=== PATIENT | female | born 1980 | race Caucasian/White ===

== ENCOUNTER 2017-12-01 07:21 | Emergency (ER) | payer MEDICAID ==
[~2017-12-01] VITALS: Ht 154.9 cm; Wt 59.0 kg
[2017-12-01] MEDS ORDERED: NAPROSYN500 MG PO (09:01)
== END 2017-12-01 09:42 | disposition home or self-care (01) ==
LOC: ED 07:21
DX: S29.012A Strain of muscle and tendon of back wall of thorax, initial encounter (principal); X58.XXXA Exposure to other specified factors, initial encounter; F17.200 Nicotine dependence, unspecified, uncomplicated
CPT/HCPCS: 80053; 81001; 83690; 84703; 85025; 96374; 99284; J1885

== ENCOUNTER 2022-04-01 09:58 | Emergency (ER) | payer OTHER ==
[~2022-04-01] VITALS: Ht 154.9 cm; Wt 66.1 kg
[~2022-04-01 09:58] MED LIST: NAPROSYN500 MG PO
--- OUTSIDE RECORDS SUMMARY | 2022-04-01 10:06 | XMS ---
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 Kim has no Care Guidelines for this patient. Care History Medical/Surgical 12/02/2017 [facility] - CHW CALLED PATIENT AND LEFT A VOICEMAIL. - PATIENT DOES NOT HAVE INSURANCE, AND HAS NOT APPLIED FOR MEDICAID BENEFITS. - NO PCP LETTER SENT TO PATIENT. - IF PATIENT IS SEEN IN THE ED PLEASE CONTACT [facility] TO APPLY FOR MEDICAID BENEFITS EXT [phone]. - PLEASE PROVIDE CHW CONTACT INFORMATION TO PATIENT IF PATIENT IS SEEN IN THE ED AFTER HOURS. - JAMEL- CONTACT NUMBER [phone]. E.D. VISIT COUNT (12 MO.) 1 [facility] TOTAL 1 NOTE: Visits indicate total known visits. ED/UCC VISIT TRACKING (12 MO.) 04/01/2022 09:[address] [facility] [place] TYPE: Emergency COMPLAINT: - SKIN PROBLEM, PAINFUL INPATIENT VISIT TRACKING (12 MO.) No inpatient visits to display in this time frame [id number]
== END 2022-04-01 13:06 | disposition home or self-care (01) ==
LOC: ED 09:58
DX: R10.31 Right lower quadrant pain (principal); F17.200 Nicotine dependence, unspecified, uncomplicated
CPT/HCPCS: 36415; 74177; 80053; 81001; 83690; 84703; 85025; 99284-25; Q9967

== ENCOUNTER 2022-06-05 08:31 | Emergency (ER) | payer OTHER ==
[~2022-06-05] VITALS: Ht 154.9 cm; Wt 61.5 kg
[~2022-06-05 08:31] MED LIST changes: +ACID CONTROLLER20 MG PO; +ZESTRIL2.5 MG PO
--- OUTSIDE RECORDS SUMMARY | 2022-06-05 08:34 | XMS ---
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 Care History Medical/Surgical 12/02/2017 [facility] - CHW CALLED PATIENT AND LEFT A VOICEMAIL. - PATIENT DOES NOT HAVE INSURANCE, AND HAS NOT APPLIED FOR MEDICAID BENEFITS. - NO PCP LETTER SENT TO PATIENT. - IF PATIENT IS SEEN IN THE ED PLEASE CONTACT [facility] TO APPLY FOR MEDICAID BENEFITS EXT [phone]. - PLEASE PROVIDE CHW CONTACT INFORMATION TO PATIENT IF PATIENT IS SEEN IN THE ED AFTER HOURS. - JAMEL- CONTACT NUMBER [phone]. E.D. VISIT COUNT (12 MO.) 2 [facility] TOTAL 2 NOTE: Visits indicate total known visits. ED/UCC VISIT TRACKING (12 MO.) 06/05/2022 08:[address] [facility] [place] TYPE: Emergency COMPLAINT: - ABD PAIN, POSS CONSTIPATION 04/01/2022 09:59 [facility] [place] TYPE: Emergency COMPLAINT: - SKIN PROBLEM, PAINFUL DIAGNOSES: - Nicotine dependence, unspecified, uncomplicated - Right lower quadrant pain INPATIENT VISIT TRACKING (12 MO.) No inpatient visits to display in this time frame [id number]
[2022-06-05] MEDS ORDERED: CONSTULOSE10 GM/15 M PO (10:01)
== END 2022-06-05 10:09 | disposition home or self-care (01) ==
LOC: ED 08:31
DX: R10.9 Unspecified abdominal pain (principal); K50.90 Crohn's disease, unspecified, without complications; F17.200 Nicotine dependence, unspecified, uncomplicated; Z79.899 Other long term (current) drug therapy
CPT/HCPCS: 36415; 74176; 80053; 81003; 83690; 84703; 85025; 96374; 99284-25; 99406; J1885; J7030

== ENCOUNTER 2022-06-06 08:35 | Day surgery (SDC) | payer OTHER ==
[~2022-06-06] VITALS: Ht 154.9 cm; Wt 63.0 kg
[~2022-06-06 08:35] MED LIST changes: +CONSTULOSE10 GM/15 M PO
--- NOTE | 2022-06-06 14:00 | NUR ---
06/06/22 1400 Jaylyn Sofia 1352-PATIENT ARRIVED TO PACU ON 6L MASK PATIENT SHAKING ORAL AIRWAY IN PLACE JULES SQUEEGEE OPERATOR REMOVED ORAL AIRWAY. PATIENT ORIENTED TO PACU. PATIENT TRYING TO LAY ON RIGHT SIDE O2 MASK REMOVED AND PLACED ON RA. PILLOW PLACED BENEATH KNEES. RIGHT GROIN INCISION CDI. FLORES PAWS AND WARM BLANKETS APPLIED. 9447-PATIENT SLEEPING 100% RR EVEN IVF INFUSING SR HR 70-80'S
--- NOTE | 2022-06-06 14:27 | NUR ---
LE 1425: PT IS BACK TO DS FROM PACU. SHE IS SLIGHTLY DISORIENTED. SHE DENIES PAIN IN THE SURGICAL AREA, BUT DOES REPORT A SORE THROAT. SHE IS GIVEN ICE WATER AND TOLERATES SIPS. CALL LIGHT WITHIN REACH. BF IS AT THE BEDSIDE. NO ADDITIONAL NEEDS CONCERNS AT THIS TIME DC CRITERIA IS REVIEWED WITH PT AND BF.
--- NOTE | 2022-06-06 14:45 | NUR ---
ANNIKA 1430: PT IS HELPED UP OOB TO USE THE BATHROOM. SHE AMBULATES HERSELF TO AND FROM THE BATHROOM. SHE VOIDS 300MLS OF PALE YELLOW URINE. SHE REQUESTS APPLE SAUCE.
--- NOTE | 2022-06-06 15:29 | NUR ---
PT IS TOLERATING WATER AND APPLE SAUCE. SHE HAS MET ALL DC CRITERIA. SHE INDICATES THAT SHE WOULD LIKE TO GO HOME AT THIS TIME. SHE IS GIVEN VERBAL INSTRUCTIONS ON HOW TO BREST DRESS HERSELF AND TO OPEN HER CURTAIN WHEN READY.
--- NOTE | 2022-06-06 15:39 | NUR ---
ANNIKA 1538: PT AND BF ARE GIVEN VERBAL AND WRITTEN DC INSTRUCTIONS. THEY BOTH VERBALIZE UNDERSTANDING. QUESTIONS ARE ASKED ANSWERED. PT IS TAKEN TO PERSONAL VEHICLE VIA WC, WHERE SHE TRANSFERS HERSELF WITHOUT ISSUES.
--- NOTE | 2022-06-06 16:29 | OR ---
[facility] [address], [place] [address] Signed DATE OF OPERATION: 06/06/2022 SURGEON: Katja Del Angel MD PREOPERATIVE DIAGNOSIS: Incarcerated right inguinal hernia. POSTOPERATIVE DIAGNOSIS: Incarcerated right femoral hernia. PROCEDURE: Colton's ligament preperitoneal right femoral herniorrhaphy with mesh. ESTIMATED BLOOD LOSS: None. 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 The restaurant is extremely busy and she does a lot of heavy work. In the last two or three months, she has noticed pain and swelling in the right groin area. She had been to the emergency room for evaluation. A CT scan showed a fluid-filled right inguinal hernia. The swelling and pain has persisted. She had been to her primary care provider. She was asked to see me with respect to the above. In the office, one could clearly see and feel this hernia. It is just low enough it is most likely a femoral hernia. I had given Mahendra a booklet on hernias. We looked at it carefully page by page. Our approach to all inguinal hernias is the same with standard oblique incision in the right groin and we generally will use mesh to repair these hernias particularly for someone so young and so involved in heavy work. I reviewed with her the expected intraop and postop course. Of course, there is risk to hernia surgery including, but not limited to bleeding, infection, scarring, change in contour of the skin, damage to the nerves, recurrent hernias and chronic pain. She had expressed understanding and wished to proceed. DESCRIPTION OF PROCEDURE: I met with Mahendra and her boyfriend in our preop area. She agreed with respect to the right inguinal hernia. We marked that appropriately. After this, she was taken in the operating room and placed in the supine position under general endotracheal tube anesthesia. She was given preoperative antibiotics along with subcutaneous heparin. SCDs were utilized. She was then prepped and draped in the usual sterile fashion. We can see she has had a previous Pfannenstiel incision for the . We did not Electronically Signed By: KATJA DEL ANGEL MD 06/06/22 1629 PATIENT NAME: MAHENDRA CARRASCO OPERATIVE REPORT DATE OF : 84 REPORT #: [id number] PHYSICIAN: KATJA DEL ANGEL MD PCP: LACY RED MD REPORT IS CONFIDENTIAL AND NOT TO BE RELEASED WITHOUT AUTHORIZATION [facility] [address], [place] [address] Signed specifically palpate the hernia in the supine position. We went ahead and made a standard oblique incision over the right groin and carried it down through the tissue bluntly and with the cautery. We had opened the external oblique fascia and looked into the inguinal canal. We moved the ilioinguinal ligament and iliohypogastric nerve medially. We elevated the round ligament just past the pubic tubercle. It was divided with cautery and then we had followed it back to the deep ring and we suture ligated the round ligament with our 2-0 PDS suture. We then amputated the round ligament and passed it off the field. We could feel some bulging just below the inguinal ligament. We went ahead and opened the floor of inguinal canal and we inspected the Colton's ligament and the femoral canal and sure enough she had a femoral hernia coming through. That tissue was the size of a small egg. Consequently, we could not reduce it through that small femoral canal. We worked the herniated fat loose below the inguinal ligament. We had amputated the hernia sac and passed it off the field. We closed the hernia sac with a running 2-0 PDS suture. We then reduced the hernia sac through the femoral canal back into the abdominal cavity. After this, we used Prolene mesh cut to fit her groin and we brought it down just past Colton's ligament and held it in place with interrupted Prolene sutures. We then made a transition step stitch up past the femoral vein and just underneath the inguinal ligament. We then folded the mesh up underneath the muscle and we held it medially with several interrupted 2-0 Prolene sutures to the shelving edge of the conjoined tendon. We did this circumferentially and we the round ligament underneath so that the mesh was over top of the round ligament as well. We then brought our inguinal floor back together with a running 0 PDS suture starting at the pubic tubercle all the way up to include the deep ring. We then used an interrupted 0 Prolene suture to close the fascial defect below the inguinal ligament in the standard Bassini fashion. After this, local anesthetic was copiously injected in the operative field. The iliohypogastric and ilioinguinal nerves were returned to their positions. We closed the external oblique fascia over the repair with a running 2-0 PDS suture. Of course, the very distal portion was left open as the external ring. We then closed Domenica's fascia with a running 3-0 Monocryl suture. We irrigated and suctioned out the wound before closure. We reapproximated the dermis with interrupted 3-0 subcuticular Monocryl sutures. Skin edges were reapproximated with a running 5-0 fast absorbing plain gut suture. Dry gauze and tape were then applied. Mahendra was then awakened from anesthesia, extubated in the OR, and taken to the recovery room in stable condition. Katja Del Angel MD ALB/MODL /[id number] Electronically Signed By: KATJA DEL ANGEL MD 06/06/22 1629 PATIENT NAME: MAHENDRA CARRASCO OPERATIVE REPORT DATE OF : 84 REPORT #: [id number] PHYSICIAN: KATJA DEL ANGEL MD PCP: LACY RED MD REPORT IS CONFIDENTIAL AND NOT TO BE RELEASED WITHOUT AUTHORIZATION [address] [address] Signed cc: MD Katja Reid MD Copies: KATJA DEL ANGEL MD ~ Electronically Signed By: KATJA DEL ANGEL MD 06/06/22 1629 PATIENT NAME: MAHENDRA CARRASCO OPERATIVE REPORT DATE OF : 84 REPORT #: [id number] PHYSICIAN: KATJA DEL ANGEL MD PCP: LACY RED MD REPORT IS CONFIDENTIAL AND NOT TO BE RELEASED WITHOUT AUTHORIZATION
== END 2022-06-06 15:40 | disposition home or self-care (01) ==
LOC: DS 08:35
PROVIDERS: ATTEND Colon & Rectal Surgery
PROC: 0YU70JZ Supplement Right Femoral Region with Synthetic Substitute, Open Approach (ICD-10-PCS; principal; 2022-06-06 10:30)
DX: K41.30 Unilateral femoral hernia, with obstruction, without gangrene, not specified as recurrent (principal)
CPT/HCPCS: 84703; J0131; J0330; J0690; J1100; J1644; J1885; J2405; J2704; J7121

== ENCOUNTER 2022-07-29 08:29 | Emergency (ER) | payer OTHER ==
[~2022-07-29] VITALS: Ht 154.9 cm; Wt 58.8 kg
--- OUTSIDE RECORDS SUMMARY | 2022-07-29 08:32 | XMS ---
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 Care History Medical/Surgical 12/02/2017 [facility] - CHW CALLED PATIENT AND LEFT A VOICEMAIL. - PATIENT DOES NOT HAVE INSURANCE, AND HAS NOT APPLIED FOR MEDICAID BENEFITS. - NO PCP LETTER SENT TO PATIENT. - IF PATIENT IS SEEN IN THE ED PLEASE CONTACT [facility] TO APPLY FOR MEDICAID BENEFITS EXT [phone]. - PLEASE PROVIDE [facility]W CONTACT INFORMATION TO PATIENT IF PATIENT IS SEEN IN THE ED AFTER HOURS. - JAMEL- CONTACT NUMBER [phone]. E.D. VISIT COUNT (12 MO.) 3 [facility] TOTAL 3 NOTE: Visits indicate total known visits. ED/UCC VISIT TRACKING (12 MO.) 07/29/2022 08:30 [facility] [place] [facility]: Emergency COMPLAINT: - ABD PAIN, DIZZINESS, V/D, INCISION PAIN 06/05/2022 08:[address] 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 [place] TYPE: Emergency COMPLAINT: - SKIN PROBLEM, PAINFUL DIAGNOSES: - Nicotine dependence, unspecified, uncomplicated - Right lower quadrant pain INPATIENT VISIT TRACKING (12 MO.) No inpatient visits to display in this time frame [email or web address]
[2022-07-29] MEDS ORDERED: ONDANSETRON ODT4 MG PO (11:11)
[2022-07-29 11:36] VITALS: BP 106/73
== END 2022-07-29 11:37 | disposition home or self-care (01) ==
LOC: ED 08:29
DX: R10.31 Right lower quadrant pain (principal); R11.2 Nausea with vomiting, unspecified; R19.7 Diarrhea, unspecified; F17.200 Nicotine dependence, unspecified, uncomplicated; Z79.899 Other long term (current) drug therapy
CPT/HCPCS: 36415; 74177; 80053; 81003; 83690; 84703; 85025; 99284-25; Q9967

== ENCOUNTER 2024-10-12 10:04 | Emergency (ER) | payer OTHER ==
[~2024-10-12] VITALS: Ht 154.9 cm; Wt 66.3 kg
[~2024-10-12 10:04] MED LIST changes: +BACTRIM DS TAB1 EACH PO; +ONDANSETRON ODT4 MG PO; +SULFAMETHOXAZO1 EAC1 PO
[2024-10-12 10:56] LABS: BASOPHILS 0.8 % (0.1-1.2); EOSINOPHILS 3.1 % (0.7-5.8); LYMPHOCYTES 18.4 % (19.3-51.7); MCH 29.5 PG (25.6-32.2); MCHC 33.7 g/dL (32.2-35.5); MCV 87.7 fL (79.4-94.8); MONOCYTES 5.9 % (4.7-12.5); NEUTROPHILS 71.6 % (34.0-71.1); RBC 4.57 M/uL (3.93-5.22)
[2024-10-12] MEDS ORDERED: SODIUM CHLORIDE 0.9% 1,000 ML IV PRN (11:00)
[2024-10-12 11:16] LABS: ALT (SGPT) 18.0 U/L (14-59); AST (SGOT) 12.0 U/L (15-37); GLOMERULAR FILTRATION RATE,EST 104.0 mL/min (>60); PROTEIN, TOTAL 7.3 g/dL (6.4-8.2); UREA NITROGEN 11.0 mg/dL (7-18)
[2024-10-12 12:28] LABS: BLOOD/HGB, URINE NEGATIVE (Negative); KETONE, URINE TRACE (Negative); LEUK ESTERASE, URINE TRACE (negative); NITRITE, URINE NEGATIVE (negative)
[2024-10-12 12:33] LABS: BACTERIA, URINE RARE /hpf (negative); CASTS, URINE NONE SEEN \\lpf; CRYSTALS, URINE NONE SEEN (0-1+); EPITHELIAL CELLS, URINE SQUAMOUS 3+ /lpf (0-1+)
[2024-10-12 12:34] LABS: REFLEX CULTURE, URINE No (No)
[2024-10-12] MEDS ORDERED: LOPERAMIDE2 M1 PO (13:12)
[2024-10-12] MEDS ORDERED: ONDANSETRON HCL4 MG PO (13:12)
[2024-10-12 13:54] VITALS: BP 139/96
== END 2024-10-12 13:57 | disposition home or self-care (01) ==
LOC: ED 10:04
PROVIDERS: Emergency Medicine
DX: R53.1 Weakness (principal); R19.7 Diarrhea, unspecified; F17.200 Nicotine dependence, unspecified, uncomplicated; Z79.899 Other long term (current) drug therapy
CPT/HCPCS: 36415; 80053; 81001; 83690; 84703; 85025; 87651; 99284; J7030